=== PATIENT | male | born 1960 | race African-American/Black ===

== ENCOUNTER 2020-06-08 20:17 | Emergency (ER) | payer BC ==
[2020-06-08 20:21] VITALS: TEMP 97; BMI 26.6
[2020-06-08 21:07] VITALS: BP 176/105; PULSE 99
--- NOTE | 2020-06-08 21:55 | PDOC ---
History of Present Illness - General Chief Complaint: Blood Pressure Problem Stated Complaint: HYPERTENSION Time Seen by Provider: 06/08/20 21:07 - History of Present Illness Initial Comments: Pt is a 60yo M with PMH HTN, HLD who presents with elevated blood pressure readings at home. 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 States high blood pressure readings since yesterday AM with readings in 170s. States that he is usually 120s-130s and is compliant with medication. Knows to avoid eating foods high in salt. Reports associated dizziness, described as "out of body" feeling. PCP: Tegan Cards: Shantel PMH: see above Meds: olmesartan, HCTZ, simvastatin Allergies: seasonal allergies Social: occasional etoh, denies tobacco, illicit drug use Review of Systems CONSTITUTIONAL:denies fever, chills, generalized weakness, malaise, loss of appetite HEENT:reports: eye pain, visual changes; denies rhinorrhea, nasal congestion, sore throat CARDIOVASCULAR:denies chest pain, syncope, palpitations, irregular heart rate, lightheadedness, peripheral edema RESPIRATORY:denies cough, shortness of breath, wheezing GASTROINTESTINAL: denies abdominal pain, nausea, vomiting, diarrhea, constipation, melena, hematochezia GENITOURINARY:denies dysuria, frequency, urgency, flank pain MUSCULOSKELETAL:denies myalgia, arthralgia HEMATOLOGIC/IMMUNOLOGIC:denies easy bleeding, easy bruising ENDOCRINE: denies unexplained weight gain, unexplained weight loss NEUROLOGIC: reports headache, denies loss of consciousness, focal weakness or paresthesias, unsteady gait, mental status changes, bladder or bowel incontinence SKIN:denies rash, itching, pallor Physical Exam General: awake, alert, fully oriented, in no acute distress, well developed, well nourished Head: normocephalic, atraumatic Eyes: PERRL, EOMI, anicteric sclera, conjunctiva clear ENT: Auricles normal inspection, hearing grossly normal, oropharynx clear without exudates, no nasal congestion, moist mucous membranes Neck: supple, normal ROM Lung: equal breath sounds b/l, CTA b/l, no crackles, wheezes Heart: RRR, normal S1, S2, no murmurs appreciated Abdomen: soft, non tender, normoactive bowel sounds, no guarding, rebound, masses Extremities: normal ROM, no edema, no erythema or tenderness, DP/PT pulses 2+ and symmetric Neuro: Cranial nerves: Cranial nerves II through XII are intact Motor: The upper extremities are 5/5 in all muscle groups. The lower extremities are 5/5 in all muscle groups. No pronator drift. Sensation: Sensation is intact to light touch throughout. Cerebellar: -dysmetria, -dysdiadochokinesia, [id number] is normal in both lower extremities. Gait: Normal Skin: warm, dry, no rashes or lesions noted MDM Pt is a 60yo M with PMH HTN, HLD who presents with elevated blood pressure readings at home. DDx including but not limited to: hypertensive urgency, TIA, anemia, electrolyte abnormality Workup: labs, ekg, head CT EKG: sinus rhythm with first degree AV block, HR 62bpm, SD 236ms, QRS 92ms, QTc 406ms, nonspecific T wave abnormality labs: no leukocytosis, no anemia, electrolytes WNL, LFTs WNL patient signed out to night team pending head CT Past History - Medical History Allergies/Adverse Reactions: Allergies Allergy/AdvReac Type Severity Reaction Status Date / Time No Known Allergies Allergy Verified 06/08/20 20:21 Home Medications: Ambulatory Orders Amlodipine Besylate/Valsartan [Amlodipine-Valsartan 10-160 mg] 1 each PO DAILY 05/04/15 Hydrochlorothiazide [Hctz -] 25 mg PO DAILY 05/04/15 Meclizine HCl [Antivert -] 25 mg PO QID PRN #28 tablet 05/04/15 COPD: No HTN: Yes - Psycho-Social/Smoking History Smoking History: Never smoked Have you smoked in the past 12 months: No - Substance Abuse Hx (Audit-C & DAST Scrn) How often the patient has a drink containing alcohol: Never Score: In Men: 4 or > Positive; In Women: 3 or > Positive: 0 Screen Result (Pos requires Nsg. Audit-10AR): Negative *Physical Exam - Vital Signs Last Vital Signs Temp Pulse Resp BP Pulse Ox 97.0 F L 99 H 19 176/105 H 97 06/08/20 20:18 06/08/20 21:05 06/08/20 21:05 06/08/20 21:05 06/08/20 20:18 ED Treatment Course - LABORATORY CBC & Chemistry Diagram: 06/08/20 22:12 06/08/20 22:22 Discharge - Discharge Information Problems reviewed: Yes Clinical Impression/Diagnosis: Hypertension Qualifiers: Hypertension type: unspecified Qualified Code(s): I10 - Essential (primary) hypertension Condition: Stable Disposition: HOME - Follow up/Referral Referrals: Jesús Javed MD [Primary Care Provider] - Mishel Funes MD [Staff Physician] - - Patient Discharge Instructions Patient Printed Discharge Instructions: DI for High Blood Pressure Additional Instructions: You came into the ER high blood pressure and blurry vision/headache/dizziness. In the ED, you were evaluated with blood work and head CT. Your blood work was normal. Your head CT did not show any bleeding or swelling. You do not appear to be an acute need for immediate hospitalization. You were advised to monitor and record your blood pressure at multiple times a day to establish a record of your pressures before you see your primary care doctor. You were advised to follow up with your primary care doctor within 1 week. Come back to the ER immediately with any new or worsening concerns, such as severe/persistent headaches, changes in vision, persistent vomiting, chest pain, or shortness of breath. Thank you for coming to the [facility] ER. We hope you feel better soon! - Post Discharge Activity
[2020-06-08 22:28] LABS: BASO % 1.3 % (0-2.0); HEMATOCRIT 40.9 % (35.4-49); HEMOGLOBIN 13.8 GM/dL (11.7-16.9); LYMPH % 34.5 % (8-40); MCH 30.4 pg (25.7-33.7); MCHC 33.9 g/dl (32.0-35.9); MEAN CELL VOLUME 89.8 fl (80-96); MEAN PLT VOLUME 7.8 fl (7.5-11.1); MONO % 7.4 % (3.8-10.2); NEUT % 51.8 % (42.8-82.8); PLATELET COUNT 263 K/MM3 (134-434); RBC 4.55 M/mm3 (4.00-5.60); RDW 13.7 % (11.9-15.9)
--- NOTE | 2020-06-08 22:47 | PDOC ---
Documentation entered by Mega Aguilera SCRIBE, acting as scribe for Kye Arreaga MD. Kye Arreaga MD: This documentation has been prepared by the scribe, Mega Aguilera SCRIBE, under my direction and personally reviewed by me in its entirety. I confirm that the documentation accurately reflects all work, treatment, procedures, and medical decision making performed by me. Attending Attestation - Resident Resident Name: EcholsErmelinda - ED Attending Attestation I have performed the following: I have examined & evaluated the patient, The case was reviewed & discussed with the resident, I agree w/resident's findings & plan, Exceptions are as noted - HPI HPI: 06/08/20 22:06 The patient is a 60 year old male with a significant past medical history of HTN and HLD who presents to the emergency department for evaluation of increased blood pressure (170s) since yesterday morning. The patient endorses feeling persistent intermittent lightheadedness yesterday particularlly when getting up, The symptoms have improved substantially since yesterday however his blood pressure has remained elevated. Today he still has the intermittent lightheadedness where he feels like he is off balance lasting for several se conds when he is getting up Then resolved, This evening he Bent over and felt momentary episode of blurry vision As well as a brief episode of sharp pain in his head which then resolved. He checked his blood pressure was noted was elevated so came for evaluation. Currently he feels asymptomatic denies any headache, vision changes. Patient denies any other symptoms including chest pain, shortness of breath, dysarthria, focal numbness, tingling, weakness, fever, chills, cough, abdominal pain, Neck pain, back pain, Melena, BPR, dysuria. - Physicial Exam PE: 06/08/20 21:14 GENERAL: The patient is awake, alert, and fully oriented, Nontoxic - in no acute distress. HEAD: Normocephalic, atraumatic. EYES: extraocular movements intact, sclera anicteric, conjunctiva clear. ENT: Normal voice, Moist mucous membranes. NECK: Normal range of motion, supple without lymphadenopathy, JVD, or masses. LUNGS: Breath sounds equal, clear to auscultation bilaterally. No wheezes, no crackles, no rales. HEART: Regular rate and rhythm, normal S1 and S2 without murmur, rub or gallop. ABDOMEN: Soft, nontender, normoactive bowel sounds. No guarding, no rebound. No masses. EXTREMITIES: Normal range of motion, no edema. No clubbing or cyanosis. No cords, erythema, or tenderness. NEUROLOGICAL: No facial asymmetry, Normal speech, normal gait. cn2-12 intact, normal symmetric movement in upper/lower extremities, senestion intact and symmeric bilaterally PSYCH: Normal mood, normal affect. SKIN: Warm, Dry, normal turgor, no rashes or lesions noted. - Medical Decision Making 06/08/20 21:49 possibly dehydration, will ck labs to r/o anemia, metaolic derangement will obtain ct head, doubt cva/tia due to brief/episodic nature of the blury vision bp may be related to anxiety as he is not feling well as he keeps on glancing at his bp, inquiring about it. no triggers / diet changes if w/o neg anticipate dc with pmd fu reequsted pt keep a bp log for his pmd Heart Score/ECG Review - ECG Impressions Comment:: 06/08/20 23:47 Twelve-lead EKG was performed and reviewed by me. There is normal sinus rhythm with a rate of 62 Nonspecific T wave normality No ST changes suggestive of acute ischemia Discharge - Discharge Information Problems reviewed: Yes Clinical Impression/Diagnosis: Hypertension Qualifiers: Hypertension type: unspecified Qualified Code(s): I10 - Essential (primary) hypertension Condition: Stable Disposition: HOME - Admission No - Follow up/Referral Referrals: Jesús Javed MD [Primary Care Provider] - Mishel Funes MD [Staff Physician] - - Patient Discharge Instructions Patient Printed Discharge Instructions: DI for High Blood Pressure Additional Instructions: You came into the ER high blood pressure and blurry vision/headache/dizziness. In the ED, you were evaluated with blood work and head CT. Your blood work was normal. Your head CT did not show any bleeding or swelling. You do not appear to be an acute need for immediate hospitalization. You were advised to monitor and record your blood pressure at multiple times a day to establish a record of your pressures before you see your primary care do ctor. You were advised to follow up with your primary care doctor within 1 week. Come back to the ER immediately with any new or worsening concerns, such as severe/persistent headaches, changes in vision, persistent vomiting, chest pain, or shortness of breath. Thank you for coming to the [facility] ER. We hope you feel better soon! - Post Discharge Activity
[2020-06-08 23:00] LABS: ALBUMIN 3.8 g/dl (3.4-5.0); BILIRUBIN,TOTAL 0.3 mg/dL (0.2-1); BLOOD UREA NITROGEN 12.5 mg/dL (7-18); CREATININE 1.2 mg/dL (0.55-1.3); POTASSIUM 3.7 mmol/L (3.5-5.1)
--- NOTE | 2020-06-09 00:18 | PDOC ---
*Physical Exam - Vital Signs Last Vital Signs Temp Pulse Resp BP Pulse Ox 97.0 F L 99 H 19 176/105 H 97 06/08/20 20:18 06/08/20 21:05 06/08/20 21:05 06/08/20 21:05 06/08/20 20:18 ED Treatment Course - LABORATORY CBC & Chemistry Diagram: 06/08/20 22:12 06/08/20 22:22 - ADDITIONAL ORDERS Additional order review: Laboratory Results 06/08/20 22:22 Sodium 143 Potassium 3.7 Chloride 109 H Carbon Dioxide 28 Anion Gap 6 L BUN 12.5 Creatinine 1.2 Est GFR (CKD-EPI)AfAm 74.66 Est GFR (CKD-EPI)NonAf 64.42 Random Glucose 86 Calcium 9.0 Total Bilirubin 0.3 AST 18 ALT 38 Alkaline Phosphatase 72 Total Protein 7.0 Albumin 3.8 06/08/20 22:12 RBC 4.55 MCV 89.8 MCHC 33.9 RDW 13.7 MPV 7.8 Neutrophils % 51.8 Lymphocytes % 34.5 Monocytes % 7.4 Eosinophils % 5.0 H Basophils % 1.3 - RADIOLOGY Radiology Studies Ordered: 06/09/20 00:39 Yaakov Napier MD wrote on Jun 09, 2020 at 12:33 AM: Referring Physician: PARAG KENNY Patient Name: MALLORY PENA THIS IS A PRELIMINARY REPORT DATE OF SERVICE: 2020-06-09 00:11:47 IMAGES: 232 EXAM: HEAD CT WITHOUT CONTRAST HISTORY: Hypertension rule out bleed COMPARISON: May 04, 2015 FINDINGS: No acute intracranial abnormality. No hemorrhage. No visible infarct or mass. Osseous structures are intact. One or more of the following dose reduction techniques were used: automated exposure control, adjustment of the mA and/or kV according to patient size, use of iterative reconstructive technique. Patient Information: : 1960 Order Type: Preliminary Name: JEAN TEJADA Sex: M Study Description: CT HEAD Modality: CT Location: [facility] Referring Physician: PARAG KENNY THIS DOCUMENT HAS BEEN ELECTRONICALLY SIGNED Yaakov Napier MD 06/09/2020 00:31 EST Medical Decision Making - Medical Decision Making 06/09/20 00:16 Sign-out received from Dr. Echols. In short, patient here with hypertension with headache resolved prior to arrival. Will follow up head CT, plan for discharge and outpatient BP management with PCP. Dispo: Home pending normal N[facility]CT 06/09/20 00:40 NCHCT without ICH or other acute findings, given copy of results Patient BP 150s/90s on re-evaluation with HR in 60s Given home dose BP medication Dispo: Home with PCP follow up Discharge - Discharge Information Problems reviewed: Yes Clinical Impression/Diagnosis: Hypertension Qualifiers: Hypertension type: unspecified Qualified Code(s): I10 - Essential (primary) hypertension Condition: Stable Disposition: HOME - Follow up/Referral Referrals: Jesús Javed MD [Primary Care Provider] - Mishel Funes MD [Staff Physician] - - Patient Discharge Instructions Patient Printed Discharge Instructions: DI for High Blood Pressure Additional Instructions: You came into the ER high blood pressure and blurry vision/headache/dizziness. In the ED, you were evaluated with blood work and head CT. Your blood work was normal. Your head CT did not show any bleeding or swelling. You do not appear to be an acute need for immediate hospitalization. You were advised to monitor and record your blood pressure at multiple times a day to establish a record of your pressures before you see your primary care doctor. You were advised to follow up with your primary care doctor within 1 week. Come back to the ER immediately with any new or worsening concerns, such as severe/persistent headaches, changes in vision, persistent vomiting, chest pain, or shortness of breath. Thank you for coming to the [facility] ER. We hope you feel better soon! - Post Discharge Activity
[2020-06-09] MEDS ORDERED: VALSARTAN 80 MG TABLET (UD) PO ONE (00:22)
[2020-06-09] MEDS ORDERED: VALSARTAN 80 MG TABLET (UD) ONE (00:45)
--- NOTE | 2020-06-09 14:58 | EKG ---
Test Reason : Blood Pressure : / mmHG Vent. Rate : 062 BPM Atrial Rate : 062 BPM P-R Int : 236 ms QRS Dur : 092 ms QT Int : 400 ms P-R-T Axes : 054 034 020 degrees QTc Int : 406 ms SINUS RHYTHM WITH 1ST DEGREE A-V BLOCK MINIMAL VOLTAGE CRITERIA FOR LVH, MAY BE NORMAL VARIANT NONSPECIFIC T WAVE ABNORMALITY ABNORMAL ECG WHEN COMPARED WITH ECG OF 04-MAY-2015 14:41, NONSPECIFIC T WAVE ABNORMALITY NOW EVIDENT IN LATERAL LEADS Confirmed by Jaskaran Truong ([id number]) on 06/09/2020 2:57:36 PM Referred By: Confirmed By:Jaskaran Truong
== END 2020-06-09 01:29 | disposition home or self-care (01) ==
LOC: JER 20:17
DX: I10 Essential (primary) hypertension (principal)
CPT/HCPCS: 36415; 70450-TC; 80053; 85025; 93005; 93010; 99285-25

== ENCOUNTER 2021-09-30 11:17 | Emergency (ER) | payer BC ==
[2021-09-30 11:22] VITALS: TEMP 97.8; BMI 26.1
[2021-09-30] MEDS ORDERED: ACETAMINOPHEN 325 MG TABLET (FP) PO ONE (12:28)
[2021-09-30] MEDS ORDERED: ACETAMINOPHEN 325 MG TABLET (FP) ONE (12:52)
[2021-09-30 13:25] LABS: BASO % 1.2 % (0-2.0); EOS % 1.9 % (0-4.5); HEMATOCRIT 44.5 % (35.4-49); HEMOGLOBIN 15.1 GM/dL (11.7-16.9); LYMPH % 32.1 % (8-40); MCH 30.2 pg (25.7-33.7); MEAN CELL VOLUME 88.7 fl (80-96); MEAN PLT VOLUME 7.7 fl (7.5-11.1); MONO % 7.9 % (3.8-10.2); NEUT % 56.9 % (42.8-82.8); PLATELET COUNT 339 10^3/uL (134-434); RBC 5.02 M/mm3 (4.00-5.60); RDW 13.7 % (11.9-15.9); WHITE BLOOD COUNT 4.5 K/mm3 (4.0-10.0)
[2021-09-30 13:51] LABS: ALBUMIN 4.1 g/dl (3.4-5.0); BLOOD UREA NITROGEN 15.5 mg/dL (7-18); CALCIUM 10.1 mg/dL (8.5-10.1)
[2021-09-30 13:54] LABS: CREATININE 1.2 mg/dL (0.55-1.3)
[2021-09-30 13:56] LABS: BILIRUBIN,TOTAL 0.4 mg/dL (0.2-1)
[2021-09-30 15:05] VITALS: BP 134/89; PULSE 74
== END 2021-09-30 15:05 | disposition home or self-care (01) ==
LOC: JER 11:17
DX: R51.9 Headache, unspecified (principal)
CPT/HCPCS: 36415; 70450-TC; 80053; 85025; 99284-25